=== PATIENT | female | born 1945 | race Caucasian/White ===

== ENCOUNTER → 2017-05-22 | Outpatient (CLI) | payer MEDICARE, OTHER | LOC: MC.RAD 07:40 | DX: Z12.31 Encounter for screening mammogram for malignant neoplasm of breast (principal) ==

== ENCOUNTER → 2018-06-23 | Outpatient (CLI) | payer MEDICARE, OTHER | LOC: MC.RAD 09:40 | DX: Z12.31 Encounter for screening mammogram for malignant neoplasm of breast (principal) ==

== ENCOUNTER 2018-09-13 08:06 | Emergency (ER) | payer MEDICARE, OTHER ==
[~2018-09-13] VITALS: Ht 167.6 cm; Wt 66.4 kg
[2018-09-13 08:08] VITALS: TEMP 98
[2018-09-13] MEDS ORDERED: PRINIVIL20 MG PO (08:24)
[2018-09-13] MEDS ORDERED: GLUCOPHAGE XR500 M1 PO (08:24)
[2018-09-13] MEDS ORDERED: COZAAR 25MG25 MG/TAB PO (08:24)
[2018-09-13] MEDS ORDERED: MULTIPLE VITAMI1 CAP PO (08:24)
[2018-09-13] MEDS ORDERED: ASPIRIN 32325 MG/TAB PO (08:25)
[2018-09-13] MEDS ORDERED: PRAVACHOL 20MG20 MG PO (08:25)
[2018-09-13 09:10] VITALS: BP 141/70; PULSE 90
--- NOTE | 2018-09-13 12:31 | NUR ---
Initial visit; Lithographic Platemaker ministered to patient in Emergency Services. Patient had fallen on the ice. Lithographic Platemaker offered comfort and prayer and brought patient's car around to entrance so she could drive herself home.
== END 2018-09-13 09:11 | disposition home or self-care (01) ==
LOC: COL.ER 08:06
DX: S70.01XA Contusion of right hip, initial encounter (principal); E11.9 Type 2 diabetes mellitus without complications; I10 Essential (primary) hypertension; Z79.84 Long term (current) use of oral hypoglycemic drugs; Z79.82 Long term (current) use of aspirin; W00.0XXA Fall on same level due to ice and snow, initial encounter; Y92.239 Unspecified place in hospital as the place of occurrence of the external cause

== ENCOUNTER → 2019-06-24 | Outpatient (CLI) | payer MEDICARE, OTHER ==
[~2019-06-24] MED LIST: ASPIRIN 32325 MG/TAB PO; COZAAR 25MG25 MG/TAB PO; GLUCOPHAGE XR500 M1 PO; MULTIPLE VITAMI1 CAP PO; PRAVACHOL 20MG20 MG PO; PRINIVIL20 MG PO
== END ==
LOC: COL.VAS 07:21
DX: H35.63 Retinal hemorrhage, bilateral (principal)

== ENCOUNTER → 2019-06-24 | Outpatient (CLI) | payer MEDICARE, OTHER | LOC: MC.RAD 08:03 | DX: Z12.31 Encounter for screening mammogram for malignant neoplasm of breast (principal) ==

== ENCOUNTER → 2020-06-28 | Outpatient (CLI) | payer MEDICARE, OTHER | LOC: MC.RAD 11:05 | DX: Z12.31 Encounter for screening mammogram for malignant neoplasm of breast (principal) ==

== ENCOUNTER 2021-05-10 05:54 | Day surgery (SDC) | payer MEDICARE, OTHER ==
[~2021-05-10] VITALS: Ht 170.2 cm; Wt 63.6 kg
[~2021-05-10 05:54] MED LIST changes: -MULTIPLE VITAMI1 CAP PO; +MULTIPLE VITAMI1 TA5 PO
[2021-05-10 07:09] VITALS: BP 144/72; PULSE 70; TEMP 96.9
[2021-05-10] MEDS ORDERED: ASPIRIN 81M81 MG/TA2 PO (07:12)
[2021-05-10] MEDS ORDERED: MACRODANTIN25 MG/CA2 PO (07:14)
[2021-05-10] MEDS ORDERED: GLUCOPHAGE500 MG/TAB PO ×2 (07:17→07:18)
[2021-05-10] MEDS ORDERED: CIPRO 250MG TA250 MG PO (07:17)
[2021-05-10] MEDS ORDERED: VITAMINC1000TA PO (07:19)
[2021-05-10] MEDS ORDERED: CALCIUM 600 MG1 EAC2 PO (07:19)
[2021-05-10] MEDS ORDERED: VITAMIN B12 781 TAB PO (07:20)
[2021-05-10] MEDS ORDERED: BIOTIN10000 MC1 PO (07:21)
[2021-05-10 08:15] VITALS: BP 111/63; PULSE 57; TEMP 97
[2021-05-10 08:30] VITALS: BP 127/59; PULSE 59
[2021-05-10 08:45] VITALS: BP 114/64; PULSE 54
--- NOTE | 2021-05-10 17:22 | NUR ---
0815 - Pt returns from endo procedure via cart and RN assist to [facility] [place] [facility]. Pt ambulates from cart to recliner with RN assist. Monitors on and alarms set. Call light within reach. Pt alert and oriented. Pt requests water and muffin. Pt denies any pain or nausea. 0830 - Pt taking food and drink well. No complications noted. 0845 - Discharge instructions given to pt, verbalized understanding. All questions answered to satisfaction. Handed to pt are a thank you card and discharge information. IV discontinued without complication 0910 - Pt transferred out of the hospital via wheelchair and RN assist, to private vehicle driven by .
== END 2021-05-10 09:10 | disposition home or self-care (01) ==
LOC: SDCO 05:54
DX: Z12.11 Encounter for screening for malignant neoplasm of colon (principal); K57.30 Diverticulosis of large intestine without perforation or abscess without bleeding; I10 Essential (primary) hypertension; E78.5 Hyperlipidemia, unspecified; E11.9 Type 2 diabetes mellitus without complications; Z20.822 Contact with and (suspected) exposure to COVID-19; Z79.82 Long term (current) use of aspirin; Z79.899 Other long term (current) drug therapy; Z79.84 Long term (current) use of oral hypoglycemic drugs
CPT/HCPCS: J2704; J7030

== ENCOUNTER → 2021-07-31 | Outpatient (CLI) | payer MEDICARE, OTHER ==
[~2021-07-31] MED LIST changes: +ASPIRIN 81M81 MG/TA2 PO; +BIOTIN10000 MC1 PO; +CALCIUM 600 MG1 EAC2 PO; +CIPRO 250MG TA250 MG PO; +GLUCOPHAGE500 MG/TAB PO; +MACRODANTIN25 MG/CA2 PO; +VITAMIN B12 781 TAB PO; +VITAMINC1000TA PO
== END ==
LOC: MC.RAD 12:36
DX: Z12.31 Encounter for screening mammogram for malignant neoplasm of breast (principal)

== ENCOUNTER → 2022-09-10 | Outpatient (CLI) | payer MEDICARE, OTHER | LOC: MC.RAD 08:05 | DX: Z12.31 Encounter for screening mammogram for malignant neoplasm of breast (principal) ==